=== PATIENT | female | born 1950 | race Hispanic/Latino ===

== ENCOUNTER → 2020-05-10 | Outpatient (CLI) | payer BC | END | disposition home or self-care (01) | LOC: RAH 09:23 | PROVIDERS: ATTEND Internal Medicine Gastroenterology | DX: R13.10 Dysphagia, unspecified (principal); M25.78 Osteophyte, vertebrae | CPT/HCPCS: 74220 ==

== ENCOUNTER → 2024-03-05 | Outpatient (CLI) | payer BC ==
[~2024-03-05] MED LIST: IOHEXOL-350 50ML VIAL IV ONE
== END | disposition home or self-care (01) ==
LOC: RAH 13:17
PROVIDERS: ATTEND Family Medicine
DX: J01.90 Acute sinusitis, unspecified (principal); J30.9 Allergic rhinitis, unspecified; Z98.890 Other specified postprocedural states
CPT/HCPCS: 70482; Q9967

== ENCOUNTER → 2024-07-01 | Outpatient (CLI) | payer BC ==
--- NOTE | 2024-07-01 14:11 | HMCIMG ---
UPPER GI TRACT, WO KUB REASON: Upper abdominal pain, unspecified COMPARISON: None TECHNIQUE: Air contrast upper GI was performed with fluoroscopic guidance. Fluoroscopy time was 1.1 minute. FINDINGS: There is normal esophageal peristalsis. Esophagus, stomach and duodenum appear unremarkable. There is no mass, ulcer or obstructing lesion. There is normal mucosal pattern. There was no reflux during the exam. IMPRESSION: 1. Normal air contrast upper GI.
== END | disposition home or self-care (01) ==
LOC: RAH 08:31
PROVIDERS: ATTEND Internal Medicine Gastroenterology
DX: R10.10 Upper abdominal pain, unspecified (principal)
CPT/HCPCS: 74240

== ENCOUNTER → 2024-07-07 | Outpatient (CLI) | payer BC ==
--- NOTE | 2024-07-07 12:48 | HMCIMG ---
NM GASTRIC EMPTYING STUDY REASON: abdominal distention. COMPARISON: None TECHNIQUE: Nuclear gastric emptying study was performed. Patient was given 1.5 mCi of technetium sulfa colloid with scrambled eggs through oral route. FINDINGS: T half of gastric emptying is abnormal at 131 minutes. IMPRESSION: Abnormal delay gastric emptying with T half of 131 minutes.
== END | disposition home or self-care (01) ==
LOC: RAH 10:02
PROVIDERS: ATTEND Internal Medicine Gastroenterology
DX: K30 Functional dyspepsia (principal); R14.0 Abdominal distension (gaseous)
CPT/HCPCS: 78264; A9541

== ENCOUNTER → 2025-03-02 | Outpatient (CLI) | payer BC ==
--- NOTE | 2025-03-03 05:01 | HMCIMG ---
EXAMINATION: ULTRASOUND OF THE ABDOMEN (LIMITED) WITH COLOR DOPPLER. CLINICAL HISTORY: Pain. COMPARISON: None. TECHNIQUE: Real-time grayscale ultrasound images of the abdomen. In addition, color Doppler is medically necessary to perform in order to evaluate vascularity and blood flow. FINDINGS: Liver: Normal in caliber, the right hepatic lobe measures 12.5 cm in the craniocaudal dimension. There is normal echogenicity of the hepatic parenchyma. There is no focal hepatic abnormality or intrahepatic biliary ductal dilatation. There is normal spectral Doppler of the main portal vein. Gallbladder: Within normal limits with normal wall thickness (0.31 cm). No hyperemia or pericholecystic free fluid. There is no cholelithiasis. Common bile duct is normal in caliber, measuring 0.39 cm. Spleen is normal in caliber and measures 6.9 x 2.0 x 1.9 cm in craniocaudal, AP and transverse dimensions respectively. No focal lesions. Pancreas: Normal in caliber and echotexture. No calcification or dilated pancreatic duct. The kidneys are normal in caliber, the right kidney measures 8.8 x 3.7 x 3.1 cm and the left kidney measures 8.4 x 4.7 x 4.1 cm in craniocaudal, AP, and transverse dimensions respectively. There is normal renal cortical thickness, and cortical echogenicity. There is no left renal calculus or hydronephrosis bilaterally. There is a calculus that measures 0.6 x 0.5 cm at the right renal upper pole. There is a simple cortical cyst that measures 1.1 x 1.0 x 1.3 cm in the right renal upper pole. There are simple cortical cysts that measure 2.5 x 3.1 x 2.2 cm in the upper pole and 2.1 x 2.0 x 2.1 cm in the lower pole of the left kidney. The abdominal aorta are normal in caliber with atherosclerosis. Visualized aspects of the inferior vena cava are unremarkable. IMPRESSION: Right renal calculus. No obstruction. Bilateral simple renal cortical cysts. /[place]
== END | disposition home or self-care (01) ==
LOC: RAH 09:00
PROVIDERS: ATTEND Family Medicine
DX: N28.1 Cyst of kidney, acquired (principal); N20.0 Calculus of kidney; R10.10 Upper abdominal pain, unspecified
CPT/HCPCS: 76700